=== PATIENT | male | born 1965 | race Caucasian/White ===

== ENCOUNTER 2021-04-14 09:48 | Outpatient (CLI) | payer BC, SELFPAY ==
--- NOTE | ~2021-04-14 | CT_ITS ---
EXAMINATION: CT abdomen pelvis w con EXAM DATE: 04/14/2021 10:32 INDICATION: hernia of anterior abdominal wall . Bilateral low abdominal pain intermittently for one y ear. TECHNIQUE: Spiral CT of the abdomen and pelvis was performed following intravenous injection of 100 m L Omnipaque 350. Axial, coronal and sagittal images of the abdomen and pelvis were reviewed. The do se-length product (DLP) for this examination was 692.97 mGy-cm. The exposure was tailored according to patient size (auto mA exposure control), and iterative reconstruction (ASIR) was used as additiona l dose reduction technique. There is no prior study for comparison. FINDINGS: There is hepatic steatosis without suspicious focal lesion identified. Spleen, adrenal gla nds, pancreas are unremarkable. Gallbladder is unremarkable. No biliary obstruction. Portal and sp lenic veins are patent. Kidneys enhance symmetrically. There is no hydronephrosis. The prostate i s unremarkable. The bladder is unremarkable. There is no retroperitoneal or pelvic lymphadenopathy. There is mild scattered arteriosclerotic disease. Small umbilical and bilateral inguinal fat-conta ining hernias. The appendix is normal. The stomach and small bowel are unremarkable. There is expected amount of c olonic stool. No free intraperitoneal gas. The heart is normal in size. There are no pericardial or pleural effusions. The lung bases are unremarkable. There are no osteoblastic or osteolytic les ions identified. IMPRESSION: 1. Small fat-containing umbilical and inguinal hernias. 2. Hepatic steatosis. Reviewed, dictated and finalized at location B. NDING MACHINE OPERATOR
[2021-04-14 10:28] LABS: Estimated Glomerular Filt Rate > 60
== END 2021-04-14 09:49 | disposition home or self-care (01) ==
PROVIDERS: PCP Physician Assistant; Visit Provider Physician Assistant
DX: K76.0 Fatty (change of) liver, not elsewhere classified (principal); K42.9 Umbilical hernia without obstruction or gangrene; K40.90 Unilateral inguinal hernia, without obstruction or gangrene, not specified as recurrent
CPT/HCPCS: 74177; Q9967

== ENCOUNTER 2023-06-26 11:00 | Inpatient (IN) | payer BC, SELFPAY ==
[2023-06-26] VITALS (24 sets, daily range): BP systolic 119–154; BP diastolic 77–114; PULSE 94–107; RESP 12–22; TEMP 36.3–36.4; O2SAT 91–100; BMI 30.2
--- NOTE | ~2023-06-26 | XR_ITS ---
EXAMINATION: XR chest 2V DATE: 06/26/2023 11:30 INDICATION: Shortness of breath. TECHNIQUE: Frontal and lateral views of the chest were obtained. COMPARISON: CT abdomen and pelvis 04/14/2021 FINDINGS: There are interstitial opacities in the mid and lower lung zones. No pleural effusion or pn eumothorax. The heart size is normal. IMPRESSION: 1. Interstitial opacities in the mid and lower lung zones, likely mild pulmonary edema. Reviewed, dictated and finalized at location A. RINTENDENT COMPRESSOR STATIONS IMPRESSION: 1. Interstitial opacities in the mid and lower lung zones, likely mild pulmonar y edema.
--- NOTE | ~2023-06-26 | CT_ITS ---
EXAMINATION: CTA chest PE protocol DATE: 06/26/2023 14:38 INDICATION: Shortness of breath. Chest and upper back pain. TECHNIQUE: Computed tomography angiography (CTA) of the chest was performed with 100 mL Omnipaque-350 intravenous contrast timed to evaluate the pulmonary arteries. Coronal maximum intensity projection 3D-reconstructions were created by the technologist. Automated exposure control and iterative reconst ruction technique were employed. The dose-length product was 633.53 mGy-cm. COMPARISON: CT abdomen and pelvis 04/14/2021 FINDINGS: There is mild emphysema. There is smooth septal thickening in the lungs, consistent mild pu lmonary edema. A calcified left lung nodule and calcified left hilar lymph nodes are consistent with old granulomatous disease. There is mild noncalcified mediastinal and right hilar lymphadenopathy, li gabriella reactive. There are small pleural effusions. Cardiomegaly is noted. No pericardial effusion. The central pulmonary is enlarged, consistent with pulmonary arterial hypertension. There is no pulmonar y embolus. There is mild thoracic spondylosis. IMPRESSION: 1. No pulmonary embolus. 2. Mild pulmonary edema. 3. Small pleural effusions. 4. Mild emphysema. 5. Mild mediastinal and right hilar lymphadenopathy, likely reactive. Reviewed, dictated and finalized at location A. TROGALVANIZING MACHINE OPERATOR
--- NOTE | 2023-06-26 11:02 | ECG_ITS ---
Measurements Intervals [place] Rate: 102 P: 62 [place]: 200 QRS: -36 QRSD: 109 T: 112 QT: 364 QTc: 475 Interpretive Statements SINUS TACHYCARDIA POSSIBLE LEFT ATRIAL ENLARGEMENT LEFT AXIS DEVIATION INTRAVENTRICULAR CONDUCTION DELAY LEFT VENTRICULAR HYPERTROPHY AND ST-T CHANGE BORDERLINE R WAVE PROGRESSION, ANTERIOR LEADS BASELINE ARTIFACT- I, II BORDERLINE ECG NO PREVIOUS ECG AVAILABLE FOR COMPARISON Electronically Signed On 06-26-2023 11:40:50 CLEANING STAFF SUPERVISOR by Maximus Cobb D.O.
[2023-06-26 11:22] LABS: Basophils Absolute Auto 0.1 K/mm3 (0.0-0.1); Basophils Percent Auto 0.8 % (0.2-1.2); Eosinophils Absolute Auto 0.2 K/mm3 (0-0.3); Eosinophils Percent Auto 2.2 % (0-4.4); Hematocrit 44.8 % (42.0-52.0); Hemoglobin 14.5 g/dL (14.0-18.0); Immature Granulocyte Absolute 0.02 K/mm3 (0.00-0.031); Immature Granulocyte Percent A 0.2 % (0-0.5); Lymphocytes Absolute Auto 1.29 K/mm3 (0.9-3.2); Lymphocytes Percent Auto 14.9 % (18.3-44.2); Mean Corpuscular HGB Conc 32.4 g/dl (32-36); Mean Corpuscular Hemoglobin 30.5 pg (26-34); Mean Corpuscular Volume 94.3 fl (80-100); Mean Platelet Volume 9.3 fl (7.4-10.4); Monocytes Absolute Auto 0.5 K/mm3 (0.1-0.6); Monocytes Percent Auto 6.1 % (2.6-8.5); Neutrophils Absolute Auto 6.6 K/mm3 (1.3-6.7); Neutrophils Percent Auto 75.8 % (45.5-73.1); Platelet Count Result 265 k/mm3 (150-375); Red Blood Count 4.75 M/mm3 (4.6-6.20); Red Cell Distribution Width 14.6 % (11.5-14.5); White Blood Count 8.7 K/mm3 (4.5-10.0)
[2023-06-26 11:37] LABS: Alanine Aminotransferase 31 U/L (6-50); Albumin Level 4.8 g/dL (3.5-5.1); Alkaline Phosphatase 93 U/L (38-126); Anion Gap 11 mmol/L (8-16); Aspartate Amino Transferase 32 U/L (17-59); Bilirubin,Total 1.1 mg/dL (0.2-1.3); Blood Urea Nitrogen 20 mg/dL (9-20); Calcium 9.9 mg/dL (8.4-10.2); Carbon Dioxide 30 mmol/L (22-30); Chloride 99 mmol/L (98-107); Estimated CRCL calculation 97 ml/min; Estimated Glomerular Filt Rate > 60; Glucose 193 mg/dL (65-110); Potassium 3.6 mmol/L (3.4-5.0); Sodium 140 mmol/L (137-145)
[2023-06-26 12:00] LABS: NT Pro B Type Natriuretic Pept 1710 pg/mL (19.9-100); Troponin I 0.023 ng/mL (0.000-0.034)
--- NOTE | 2023-06-26 12:29 | ED.GENADULT ---
HPI - General Adult General Chief complaint: Shortness of Breath/Dyspnea Stated complaint: sob Time Seen by Provider: 06/26/23 11:16 History of Present Illness HPI narrative: 57-year-old male present to the emergency department for evaluation orthopnea and worsening shortness breath over the last few days. Patient states when he lays down flat he does have some chest congestion. Patient denies any current chest pain but states he does have some intermittent back pain. Patient does have a history of peripheral neuropathy and does have intermittent lower extremity swelling. Related Data Allergies Allergy/AdvReac Type Severity Reaction Status Date / Time No Known Allergies Allergy Verified 06/26/23 11:11 Review of Systems Review of Systems: All systems reviewed & are unremarkable except as noted in HPI and below Exam Narrative: APPEARANCE: Well appearing, no pain, no distress, well-nourished. HEAD: normocephalic, atraumatic. EYES: PERRLA/EOMI, conjunctivae clear. NOSE: Normal no drainage EARS:TMS clear with good light reflex. THROAT: Pharynx clear, no exudate. NECK: Supple. No adenopathy, no masses. RESPIRATORY: Airway patent, respirations nonlabored. Clear to auscultation bilaterally, no rales, rhonchi, wheezing. CARDIOVASCULAR: Regular rate and rhythm without murmurs rubs or gallops. ABDOMINAL: Soft, nontender, nondistended, normal bowel sounds MUSCULOSKELETAL: Moves all extremities. Plus one edema of her lower extremities bilaterally NEURO: Alert. Cranial nerves II through XII intact. SKIN: Warm, dry. Normal Color Course Course Emergency Course: 57-year-old male presenting emergency department for evaluation orthopnea and worsening exertional shortness of breath. Patient is afebrile with no leukocytosis and a stable hemoglobin of 14.5 patient does have an of 0.[address] showed no evidence of pulmonary embolism. CMP shows no acute abnormalities. Patient did have a bumped troponin is 0.036 and patient has an elevated BNP is 1700. Patient was treated with Lasix. Case was discussed with hospitalist and patient was accepted for admission. Vital Signs Vital signs: Vital Signs Temperature 97.6 F 06/26/23 11:01 Pulse Rate 107 H 06/26/23 11:01 Respiratory Rate 17 06/26/23 11:01 Blood Pressure 150/114 H 06/26/23 11:01 Pulse Oximetry 100 06/26/23 11:01 Oxygen Delivery Room Air 06/26/23 11:01 Temperature 97.6 F 06/26/23 11:01 Pulse Rate 105 H 06/26/23 18:22 Respiratory Rate 18 06/26/23 18:22 Blood Pressure 152/93 H 06/26/23 18:22 Pulse Oximetry 97 06/26/23 18:22 Oxygen Delivery Room Air 06/26/23 11:01 Medical Decision Making Vital Signs Vital Signs: Vital Signs Temperature 97.6 F 06/26/23 11:01 Pulse Rate 107 H 06/26/23 11:01 Respiratory Rate 17 06/26/23 11:01 Blood Pressure 150/114 H 06/26/23 11:01 Pulse Oximetry 100 06/26/23 11:01 Oxygen Delivery Room Air 06/26/23 11:01 Temperature 97.6 F 06/26/23 11:01 Pulse Rate 105 H 06/26/23 18:22 Respiratory Rate 18 06/26/23 18:22 Blood Pressure 152/93 H 06/26/23 18:22 Pulse Oximetry 97 06/26/23 18:22 Oxygen Delivery Room Air 06/26/23 11:01 Lab Data 06/26/23 11:16 06/26/23 11:16 Labs: Lab Results 06/26/23 06/26/23 06/26/23 Range/Units 11:15 11:16 13:05 WBC 8.7 (4.5-10.0) K/mm3 RBC 4.75 (4.6-6.20) M/mm3 Hgb 14.5 (14.0-18.0) g/dL Hct 44.8 (42.0-52.0) % MCV 94.3 (80-100) fl MCH 30.5 (26-34) pg MCHC 32.4 (32-36) g/dl RDW 14.6 H (11.5-14.5) % Plt Count 265 (150-375) k/mm3 MPV 9.3 (7.4-10.4) fl Immature Gran % (Auto) 0.2 (0-0.5) % Neut % (Auto) 75.8 H (45.5-73.1) % Lymph % (Auto) 14.9 L (18.3-44.2) % [place] % (Auto) 6.1 (2.6-8.5) % Eos % (Auto) 2.2 (0-4.4) % Baso % (Auto) 0.8 (0.2-1.2) % Lymph # (Auto) 1.29 (0.9-3.2) K/mm3 [place] # (Auto) 0.5 (0.1-0.6) K/m
[2023-06-26] MEDS: FUROSEMIDE INJ 40 MG/4 ML VIAL IV PUSH ×2 (12:35→21:22)
[2023-06-26 13:23] LABS: D Dimer 0.77 ug/mL (<0.48)
--- NOTE | 2023-06-26 15:01 | ECG_ITS ---
Measurements Intervals [place] Rate: 97 P: 56 [place]: 197 QRS: -34 QRSD: 110 T: 100 QT: 386 QTc: 491 Interpretive Statements SINUS RHYTHM LEFT AXIS DEVIATION POSSIBLE LEFT ATRIAL ENLARGEMENT INTRAVENTRICULAR CONDUCTION DELAY LEFT VENTRICULAR HYPERTROPHY AND ST-T CHANGE BASELINE ARTIFACT- I, III, AVL BORDERLINE ECG COMPARED TO ECG 06/26/2023 11:13:46 SINUS RHYTHM NOW PRESENT Electronically Signed On 06-26-2023 15:39:15 HAZMAT TANKER DRIVER by Maximus Cobb D.O.
[2023-06-26 15:59] LABS: Troponin I 0.036 ng/mL (0.000-0.034)
--- NOTE | 2023-06-26 16:42 | PC.NURSE ---
dinner tray ordered at 1640
--- NOTE | 2023-06-26 18:48 | ECG_ITS ---
Measurements Intervals [place] Rate: 101 P: 68 [place]: 206 QRS: -37 QRSD: 112 T: 109 QT: 371 QTc: 481 Interpretive Statements SINUS TACHYCARDIA LEFT AXIS DEVIATION POSSIBLE LEFT ATRIAL ENLARGEMENT INTRAVENTRICULAR CONDUCTION DELAY LEFT VENTRICULAR HYPERTROPHY AND ST-T CHANGE BORDERLINE R WAVE PROGRESSION, ANTERIOR LEADS COMPARED TO ECG 06/26/2023 15:20:19 SINUS TACHYCARDIA NOW PRESENT Electronically Signed On 06-26-2023 21:14:39 BRUSH CLEARING LABORER by Maximus Cobb D.O.
--- NOTE | 2023-06-26 18:58 | PM.IMHP ---
H&P: HPI History of Present Illness Date/Time: 06/26/23 17:30 Chief Complaint: Shortness of breath. Narrative: This is a very pleasant 57-year-old male with type 2 diabetes mellitus, hypertension, mixed hyperlipidemia, peripheral neuropathy, and cerebral aneurysm status post coiling who presented to the emergency department via private vehicle from home for evaluation of shortness of breath. The patient provides the following history. Sometime last week he developed shortness of breath when lying in bed and one night it was significant enough that he had to sit up in order to sleep throughout the night. Since that time he has been more fatigued than unusual and is getting a bit short of breath with day-to-day activities. Initially he denied chest discomfort but with further questioning he did admit to having intermittent chest heaviness though he attributed that to the fact that he was trying to make himself cough to see if that would help his shortness of breath. He denies paroxysmal nocturnal dyspnea but reports that she has been concerned for some time that he may have sleep apnea and reports that he snores heavily. He has not noticed any swelling in his legs. He has occasional sweats but nothing significant. He denies syncope, near syncope, cold and flu symptoms, pleuritic pain, palpitations, sensations of racing heart, nausea, and vomiting. No known history of cardiac or pulmonary disease. In the ED: He was afebrile on arrival. Blood pressures have been running in the 140s to 150s systolic with diastolic readings in the 90s. He was in a sinus tachycardia on arrival but heart rate has slowed down to a normal rate. Initial EKG showed left axis deviation, borderline R-wave progression, and findings of LVH. Chest CTA was negative for pulmonary embolus but did note cardiomegaly, mild pulmonary edema, small pleural effusions, mild emphysema, and enlarged central pulmonary arteries consistent with pulmonary arterial hypertension. Labs were significant for a proBNP is 1710, 3 hour troponin of 0.036, glucose 183, D-dimer 0.77. He received 40 mg IV furosemide and has put out nearly 2 L of urine since that time. He has no current complaints. Review of Systems Review of Systems: Twelve systems were reviewed and are negative except for as per HPI. [facility] Past Medical History Medical History Former smoker Smoked 2 packs a day for nearly 20 years. Hypertension Mixed hyperlipidemia Type 2 diabetes mellitus Surgical History Surgical History Status post coil embolization of cerebral aneurysm Family History Family History Mother Heart disease Social History Social History Social History: Surrogate medical decision maker: Gabrielle Grossroe, spouse. Code status: Full code. Smoking packs per day: 2 Smoking cigarettes per day: 40.0 Years smoked: 20 Smoking pack-years: 40.00 Alcohol intake: current Alcohol use details: Rare alcohol use in moderation. Substance use: never Additional living arrangements comments: Lives with spouse in [place]. Additional occupation/education comments: Works for [employer]. Meds Home Medications and Allergies Allergies Allergy/AdvReac Type Severity Reaction Status Date / Time No Known Allergies Allergy Verified 06/26/23 11:11 Vital Signs Vital Signs - 24 hr 06/26/23 11:01 06/26/23 11:13 06/26/23 11:31 Temperature 97.6 F Pulse Rate 107 H 100 103 H Respiratory Rate 17 18 Blood Pressure 150/114 H Pulse Oximetry 100 99 Oxygen Delivery Room Air 06/26/23 11:32 06/26/23 12:08 06/26/23 12:50 Temperature Pulse Rate 102 H 105 H 103 H Respiratory Rate 22 H 22 H 20 Blood Pressure 154/101 H Pulse Oximetry 97 97 96 Oxyg
[2023-06-26 19:42] LABS: Troponin I 0.035 ng/mL (0.000-0.034)
[2023-06-27] VITALS (14 sets, daily range): BP systolic 119–138; BP diastolic 82–92; PULSE 72–104; RESP 16–21; TEMP 36.2–37.2; O2SAT 96–100
--- NOTE | 2023-06-27 02:17 | ADMGEN ---
This patient, Leonard Rodriguez, was admitted to IMU Room 206-02. Patient/family oriented to hospital policies and general routines including ID bracelet, bed and alarms, visiting hours, pain management, procedures, bathroom and other care routines, personal items, smoking policy, room service/diet, and visiting hours. Information on how to activate the Rapid Response Team has been discussed. Patient/Family are encouraged to report perceived risks to care and to ask questions if they do not understand what they are told or what they should do.
[2023-06-27 05:56] LABS: Anion Gap 7 mmol/L (8-16); Blood Urea Nitrogen 19 mg/dL (9-20); Calcium 9.6 mg/dL (8.4-10.2); Carbon Dioxide 31 mmol/L (22-30); Chloride 102 mmol/L (98-107); Estimated CRCL calculation 87 ml/min; Estimated Glomerular Filt Rate > 60; Glucose 152 mg/dL (65-110); Magnesium 2.2 mg/dL (1.6-2.3); Potassium 3.7 mmol/L (3.4-5.0); Sodium 140 mmol/L (137-145)
--- NOTE | 2023-06-27 09:08 | PM.CNCAR ---
Assessment and Plan Assessment and plan (1) Acute HFrEF (heart failure with reduced ejection fraction): Code(s): I50.21 - Acute systolic (congestive) heart failure Status: Acute Assessment and Plan: New diagnosis decompensated heart failure with reduced ejection fraction with EF 25-30% by echocardiogram at bedside reporting progressive declining activity tolerance, fatigue exertional dyspnea past several months particularly worse with past week. Discussed at great etiology prior to obtaining the echo the likelihood he has significant LV dysfunction as explanation to his symptoms confirmed by the echo this hospitalization. We discussed medical management consideration, nonischemic versus ischemic etiology further evaluation. Circumstances echo findings. given the degree of LV enlargement dysfunction this is consistent with a more chronic progressive process which may be related to severe multi-vessel progressive CAD or nonischemic etiology. As such I recommended coronary angiography for definitive assessment of coronary anatomy and to exclude severe obstructive CAD as explanation with recommendation to follow. We discussed risks, benefits and alternatives. All questions answered to his satisfaction. Patient verbalized understanding and agreed with plan of care. overall, we discussed the pathophysiology of heart failure, LV dysfunction potential arrhythmia risk medical management prognosis and justification for medical treatment. Discussed importance of medical management in this regard as well. I would recommend discontinuation of lisinopril with a 36 hour washout and subsequent initiation of Entresto 49/51 mg twice daily. Continuation of aspirin 81 mg daily, atorvastatin 20 mg daily, Jardiance 10 mg daily. Initiate Toprol XL 25 mg daily for additional cardiovascular support. Add spironolactone 25 mg daily and discontinue hydrochlorothiazide. Transition to oral Lasix 40 mg p.o. daily beginning tomorrow. NPO after midnight for coronary angiography tomorrow for delineation of coronary anatomy. Hold enoxaparin after today's dose. Continue to monitor on telemetry given patient's high risk status due to severe LV dysfunction risk for potential life-threatening ventricular arrhythmias decompensated heart failure. Monitor renal function closely as well as electrolytes. (2) Cardiomyopathy: Qualifiers: Cardiomyopathy type: other Qualified Code(s): I42.8 - Other cardiomyopathies Code(s): I42.9 - Cardiomyopathy, unspecified Status: Acute Assessment and Plan: New diagnosis severe LV systolic dysfunction EF 25-30% by echocardiogram reviewed at bedside. As above, nonischemic versus ischemic etiology discussed at length. Cause more likely due to his risk factors underlying obstructive CAD as discussed if further evaluation warranted. If nonischemic for evaluation such as cardiac MRI as an outpatient may also be considered along with additional workup. As above, will attempt to optimize guideline directed medical therapy as tolerated. (3) Hypertension: Code(s): I10 - Essential (primary) hypertension Status: Acute Assessment and Plan: BP marginal control, improved from admission however. Medication changes above. Discontinue lisinopril in favor of Entresto, discontinue hydrochlorothiazide and initiate spironolactone 25 mg daily. Initiate Toprol XL 25 mg daily. (4) Mixed hyperlipidemia: Code(s): E78.2 - Mixed hyperlipidemia Status: Acute Assessment and Plan: Continue atorvastatin 20 mg bedtime, check lipid panel, if CAD identified goal LDL less than 70. (5) Type 2 diabetes mellitus: Code(s): E11.9 - Type 2 diabetes mellitus without complications Status: Acute Assessment and Plan: medical management per primary service. (6) Elevated troponin: Code(s): R79.89 - Other specified abnormal findings of blood chemistry Status
[2023-06-27] MEDS: PERFLUTREN LIPID MICROSPHERES 1.5 ML VIAL DILUTED TO 10 ML TOTAL VOLUME IV PUSH (10:00)
[2023-06-27] MEDS: PANTOPRAZOLE 40 MG TABLET PO ×2 (10:46→11:51)
[2023-06-27] MEDS: PREGABALIN (*CRX) 50 MG CAPSULE 100 MG PO ×3 (10:47→21:32)
--- NOTE | 2023-06-27 11:44 | IVDEFINITY ---
Prior to administration of IV Definity the patient was educated on the risks and benefits of the imaging enhancing agent including potential adverse side effects. The patient verbalized understanding. Allergies were verified. No exclusion criteria were identified and at least one of the following inclusion criteria were met: 1) physician request, 2) patient technically difficult to image (per the [place] [employer] Echocardi[employer] guidelines of two or more segments not discernable within the apical view), or 3) questionable left ventricular function. ?
[2023-06-27] MEDS: ATORVASTATIN 20 MG TABLET PO (11:51)
[2023-06-27] MEDS: DULoxetine HCL 60 MG CAPSULE.DR PO (11:51)
[2023-06-27] MEDS: ASPIRIN 81 MG CHEWABLE TABLET PO (11:51)
[2023-06-27] MEDS: lisinopriL 20 MG TABLET PO (11:52)
[2023-06-27] MEDS: EMPAGLIFLOZIN 10 MG TABLET PO (11:52)
[2023-06-27] MEDS: FUROSEMIDE INJ 40 MG/4 ML VIAL IV PUSH (11:56)
[2023-06-27] MEDS: ENOXAPARIN 40 MG/0.4 ML SYRINGE SUB-Q (11:56)
[2023-06-27] MEDS: METOPROLOL SUCCINATE EXT REL 25 MG TABCR PO (15:54)
--- NOTE | 2023-06-27 17:22 | PM.IMPN ---
Progress Note: A&P Assessment and Plan (1) Congestive heart failure: Code(s): I50.9 - Heart failure, unspecified Status: Acute Assessment and Plan: Patient presents with FRAZIER for about 4-6 weeks that worsened over the last 1 week. BNP 1710. CXR showing interstitial opacities lower lung hernandez. EKG showing sinus mechanism, LAD, LVH with strain and IVCD. Troponin very mildly elevated probably related to CHF exacerbation. CTA chest was negative for PE, mild pulmonary edema, small pleural effusions, mild emphysema and mild adenopathy. Echo showing EF 25-30%, diastolic dysfunction, reduced RV systolic function, moderate TR/MR and severe pulm HTN Patient with acute systolic and diastolic CHF exacerbation with possible right sided failure. Etiology unclear. Consider hypertensive CMP, viral CMP, cardiac ischemia, alcohol (but felt less likely) Cardiology consulted and appreciate their input Started on Entresto, Toprol XL, and Spironolactone. Empagliflozin continued Started on Lasix IV but now transitioned to oral. [facility] planned for tomorrow to evaluate for coronary disease (2) Cardiomyopathy: Qualifiers: Cardiomyopathy type: other Qualified Code(s): I42.8 - Other cardiomyopathies Code(s): I42.9 - Cardiomyopathy, unspecified Status: Acute Assessment and Plan: As above (3) Elevated troponin: Code(s): R79.89 - Other specified abnormal findings of blood chemistry Status: Acute Assessment and Plan: Troponin is very mildly elevated and is unlikely to be due to acute coronary syndrome. [place] related to CHF (4) Hypertension: Code(s): I10 - Essential (primary) hypertension Status: Acute Assessment and Plan: Patient's blood pressure was reviewed on 06/27 Blood pressure was elevated on admission but better now. Will continue to monitor (5) Type 2 diabetes mellitus: Code(s): E11.9 - Type 2 diabetes mellitus without complications Status: Acute Assessment and Plan: The patient's blood glucose was reviewed on 06/27 Glucose remains well controlled. Start AccuCheks covering with sliding scale. Hypoglycemia protocol available as needed. Continue to follow Check hemoglobin A1c. (6) Suspected sleep apnea: Code(s): R29.818 - Other symptoms and signs involving the nervous system Status: Acute Assessment and Plan: reports that he snores heavily. Apnea link ordered for this evening. (7) Mixed hyperlipidemia: Code(s): E78.2 - Mixed hyperlipidemia Status: Acute Assessment and Plan: LFTs within normal limits. Continue atorvastatin Plan DVT prophylaxis - Lovenox Code status - Full Subjective Date/time seen: 06/27/23 17:22 Interval history: 57yo male with hx of DM with neuropathy, HTN, HLD, ex-smoker and cerebral aneurysm s/p coil here for shortness of breath. He noted FRAZIER about 4-6 weeks ago that worsened. He was a heavy drinker up until he had the coil placed in 2017 and now only has a few drinks per month. No CP. Feels better today and less SOB. Not much of an appetite Exam Narrative: AF 98.9 119/82 104 20 97% ra Gen - NARD Chest - few basilar rhonchi o/w clear CV - RRR S1/S2. Tele showing episodes of 3-5b NSVT Abd - Soft, NT/ND, Positive BS Ext - No pedal edema Neuro - Alert and oriented. Nonfocal exam. Psych - Nml mood and affect Skin - Warm and dry Objective Data Vital Signs Vital Signs: Vital Signs - 24 hr 06/26/23 18:22 06/26/23 17:35 06/26/23 21:12 Temperature Pulse Rate 105 H 99 100 Respiratory Rate 18 18 15 Blood Pressure 152/93 H 132/84 Pulse Oximetry 97 96 97 Oxygen Delivery 06/26/23 22:19 06/26/23 23:18 06/27/23 00:00 Temperature 97.3 F L Pulse Rate 97 99 Respiratory Rate 16 16 Blood Pressure 119/94 H 127/81 Pulse Oximetry 95 95 Oxygen Delivery Room Air 06/27/23 00:00 06/27/23 02:00
[2023-06-27 20:26] LABS: Glucose Point of Care 103 mg/dl (65-105)
--- NOTE | 2023-06-27 21:56 | ECHO_ITS ---
Patient Info Name: Leonard Rodriguez Age: 57 years : 1965 Gender: Male Ht: 69 in Wt: 205 lbs BSA: 2.15 m2 HR: 94 bpm BP: 138 / 83 mmHg Heart Rhythm: Tachycardia, Sinus Rhythm Technical Quality: Good Exam Date: 06/27/2023 9:49 AM Exam Location: Echo Lab Patient Status: Inpatient Admit Date: 06/26/2023 Staff Ordering Physician: Qian Nguyen PA-C Pathologist: Sharron Sidhu RDCS Attending Provider: Lorie Caraballo MD Referring Physician: Patrick MOROCHO; Exam Type: CA echo dop color flow w con Study Info Indications - CHF, HTN, ELEVATED TROPONIN Complete two-dimensional, color flow and Doppler transthoracic echocardiogram is performed with contrast to opacify the left ventricle and to improve the deliniation of the left ventricle endocardial borders. Contrast/Agitated Saline Contrast/Ag. Saline: Definity Amount: 3.00 ml Summary 1. No evidence for LV apical thrombus with definity contrast administration. 2. Left ventricular chamber dimension is moderate to severely enlarged. 3. Left ventricular systolic function is severely reduced, estimated at 25-30%. 4. There is mildly increased left ventricular wall thickness. 5. The left ventricular diastolic function is abnormal. 6. Right ventricular chamber dimension is normal. 7. Right ventricular systolic function is moderately reduced. 8. Left atrial chamber dimension is moderately enlarged. 9. There is moderate tricuspid valve regurgitation. 10. Severe pulmonary hypertension, estimated pulmonary arterial systolic pressure is 68 mmHg. 11. There is moderate mitral valve regurgitation. Left Ventricle Left ventricular chamber dimension is moderate to severely enlarged. Left ventricular systolic function is severely reduced, estimated at 25-30%. There is mildly increased left ventricular wall thickness. The left ventricular diastolic function is abnormal. There is no thrombus visualized in the left ventricle. No evidence for LV apical thrombus with definity contrast administration. Right Ventricle Right ventricular chamber dimension is normal. Right ventricular systolic function is moderately reduced. Left Atria Left atrial chamber dimension is moderately enlarged. Right Atria Right atrial chamber dimension is mildly enlarged. Aortic Valve The aortic valve is not well visualized. There is no aortic valve stenosis. There is no aortic valve regurgitation. Pulmonic Valve The pulmonic valve is not well visualized. There is trace pulmonic regurgitation. Mitral Valve The mitral valve has thickened leaflets. There is moderate mitral valve regurgitation. Tricuspid Valve The tricuspid valve leaflets are normal. There is moderate tricuspid valve regurgitation. Severe pulmonary hypertension, estimated pulmonary arterial systolic pressure is 68 mmHg. Pericardium/Pleural The pericardium appears normal. There is no pericardial effusion. Inferior Vena Cava Dilated inferior vena cava with <50% collapse upon inspiration consistent with significantly elevated right atrial pressure, 15 mmHg. Aorta The aortic root size at the sinus of Valsalva is normal. There is mild aortic atherosclerosis. Left Ventricular Outflow Tract Name Value Normal LVOT 2D LVOT Diameter 1.82 cm
[2023-06-28] VITALS (23 sets, daily range): BP systolic 109–138; BP diastolic 71–95; PULSE 84–126; RESP 14–20; TEMP 36.4–36.7; O2SAT 87–100
[2023-06-28] MEDS: PREGABALIN (*CRX) 50 MG CAPSULE 100 MG PO ×2 (05:04→13:21)
[2023-06-28 07:53] LABS: Basophils Absolute Auto 0.1 K/mm3 (0.0-0.1); Basophils Percent Auto 0.7 % (0.2-1.2); Eosinophils Absolute Auto 0.6 K/mm3 (0-0.3); Eosinophils Percent Auto 5.9 % (0-4.4); Hematocrit 44.6 % (42.0-52.0); Hemoglobin 14.8 g/dL (14.0-18.0); Immature Granulocyte Absolute 0.02 K/mm3 (0.00-0.031); Immature Granulocyte Percent A 0.2 % (0-0.5); Lymphocytes Absolute Auto 1.82 K/mm3 (0.9-3.2); Lymphocytes Percent Auto 17.4 % (18.3-44.2); Mean Corpuscular HGB Conc 33.2 g/dl (32-36); Mean Corpuscular Volume 93.3 fl (80-100); Mean Platelet Volume 9.5 fl (7.4-10.4); Monocytes Absolute Auto 0.8 K/mm3 (0.1-0.6); Monocytes Percent Auto 7.4 % (2.6-8.5); Neutrophils Absolute Auto 7.2 K/mm3 (1.3-6.7); Neutrophils Percent Auto 68.4 % (45.5-73.1); Platelet Count Result 272 k/mm3 (150-375); Red Blood Count 4.78 M/mm3 (4.6-6.20); Red Cell Distribution Width 14.6 % (11.5-14.5); White Blood Count 10.5 K/mm3 (4.5-10.0)
[2023-06-28 08:01] LABS: Albumin Level 4.3 g/dL (3.5-5.1); Anion Gap 7 mmol/L (8-16); Blood Urea Nitrogen 20 mg/dL (9-20); Calcium 9.6 mg/dL (8.4-10.2); Carbon Dioxide 32 mmol/L (22-30); Chloride 102 mmol/L (98-107); Estimated CRCL calculation 78 ml/min; Estimated Glomerular Filt Rate > 60; Glucose 121 mg/dL (65-110); Magnesium 2.3 mg/dL (1.6-2.3); Phosphorus 4.4 mg/dL (2.5-4.5); Potassium 3.9 mmol/L (3.4-5.0); Sodium 141 mmol/L (137-145)
[2023-06-28 08:22] LABS: Glucose Point of Care 130 mg/dl (65-105)
[2023-06-28] MEDS: EMPAGLIFLOZIN 10 MG TABLET PO (08:23)
[2023-06-28] MEDS: PANTOPRAZOLE 40 MG TABLET PO (08:23)
[2023-06-28] MEDS: DULoxetine HCL 60 MG CAPSULE.DR PO (08:23)
[2023-06-28] MEDS: METOPROLOL SUCCINATE EXT REL 25 MG TABCR PO (08:23)
[2023-06-28] MEDS: ATORVASTATIN 20 MG TABLET PO (08:25)
[2023-06-28] MEDS: ASPIRIN 81 MG CHEWABLE TABLET PO (08:25)
[2023-06-28 09:34] LABS: Hemoglobin A1C 6.3 % (<5.7)
--- NOTE | 2023-06-28 09:37 | WPDMODSED ---
Moderate Sedation Note-Pt Data Patient Data Diagnosis: Newly diagnosed cardiomyopathy Present Complaint: Shortness of breath Procedure to be performed/Plan: Left heart catheterization Allergies Allergy/AdvReac Type Severity Reaction Status Date / Time No Known Allergies Allergy Verified 06/26/23 11:11 Home Medications Medication Instructions Recorded Confirmed Type atorvastatin 20 mg tablet 20 mg PO DAILY 06/26/23 06/27/23 History lisinopril 20 1 tablet PO DAILY 06/26/23 06/26/23 History mg-hydrochlorothiazide 12.5 mg tablet metformin 500 mg tablet,extended 500 mg PO DAILY 06/26/23 06/26/23 History release 24 hr omeprazole 40 mg capsule,delayed 40 mg PO DAILY 06/26/23 06/26/23 History release pregabalin 100 mg capsule 100 mg PO TID 06/26/23 06/27/23 History aspirin 81 mg tablet 81 mg PO DAILY 06/27/23 06/27/23 History duloxetine 60 mg capsule,delayed 60 mg PO DAILY 06/27/23 06/27/23 History release empagliflozin 10 mg tablet 10 mg PO DAILY 06/27/23 06/27/23 History (Jardiance) Current Medications: Active Medications Acetaminophen (Acetaminophen 325 Mg Tablet) 650 mg PO Q6H PRN PRN Reason: Mild Pain (1-3) or Fever Aspirin (Aspirin 81 Mg Chewable Tablet) 81 mg PO DAILY@0800 [facility] Last Admin: 06/28/23 08:25 Dose: 81 mg Atorvastatin Calcium (Atorvastatin 20 Mg Tablet) 20 mg PO DAILY [facility] Last Admin: 06/28/23 08:25 Dose: 20 mg Dextrose (Dextrose 50% 25 Gm/50 Ml Syringe) 12.5 gm IV PUSH PRN PRN; Protocol PRN Reason: Hypoglycemia Duloxetine HCl (Duloxetine Hcl 60 Mg Capsule.Dr) 60 mg PO DAILY [facility] Last Admin: 06/28/23 08:23 Dose: 60 mg Empagliflozin (Empagliflozin 10 Mg Tablet) 10 mg PO DAILY [facility] Last Admin: 06/28/23 08:23 Dose: 10 mg Enoxaparin Sodium (Enoxaparin 40 Mg/0.4 Ml Syringe) 40 mg SUB-Q DAILY [facility] Last Admin: 06/27/23 12:17 Dose: Not Given Furosemide (Furosemide 40 Mg Tablet) 40 mg PO DAILY [facility] Glucagon (Glucagon For Inj 1 Mg Vial) 1 mg IM PRN PRN; Protocol PRN Reason: Hypoglycemia Glucose (Glucose Oral Gel 15 Gm Of Glucse In 37.5 Gm Tube) 15 gm PO PRN PRN; Protocol PRN Reason: Hypoglycemia Dextrose (Dextrose 5% 1,000 Ml) 1,000 mls @ 100 mls/hr IVPB PRN PRN; Protocol PRN Reason: Hypoglycemia Insulin Aspart (Insulin Aspart (*Bkc) 100 Units/Ml) 3 - 6 units SUB-Q TIDWM DENISA; Protocol Last Admin: 06/28/23 08:01 Dose: Not Given Metoprolol Succinate (Metoprolol Succinate Ext Rel 25 Mg Tabcr) 25 mg PO QAM [facility] Last Admin: 06/28/23 08:23 Dose: 25 mg Pantoprazole Sodium (Pantoprazole 40 Mg Tablet) 40 mg PO Q12HR [facility] Last Admin: 06/28/23 08:23 Dose: 40 mg Pregabalin (Pregabalin (*Crx) 50 Mg Capsule) 100 mg PO Q8HR [facility] Last Admin: 06/28/23 05:04 Dose: 100 mg Sacubitril/Valsartan (Sacubitril/Valsartan 49-51 Mg Tablet) 1 tablet PO Q12HR [facility]ISA Spironolactone (Spironolactone 25 Mg Tablet) 25 mg PO QAM [facility] Sedation/Anesthesia: No previous sedation/anesthesia problems (including family history). [facility] Past Medical History Medical History Former smoker Smoked 2 packs a day for nearly 20 years. Hypertension Mixed hyperlipidemia Type 2 diabetes mellitus Surgical History Surgical History Status post coil embolization of cerebral aneurysm Family History Family History Mother Heart disease Glaucoma Social History Social History Social History: Surrogate medical decision maker: Gabrielle Veronica, spouse. Code status: Full code. Smoking packs per day: 2 Smoking cigarettes per day: 40.0 Years smoked: 20 Smoking pack-years: 40.00 Smoking status: Former smoker Tobacco type: cigarettes Smoking end date: 06/27/94 Alcohol intake: current Drinks per week: 1 Alcohol use details: Rare alcohol use in moderat
--- NOTE | 2023-06-28 10:25 | WPDCARDPROC ---
Cardiac Cath Procedure Note Date of procedure:: 06/28/23 Performing physician:: Leonard Ruiz MD Indication:: newly diagnosed cardiomyopathy Brief clinical history:: this is a 57-year-old man with hypertension, type 2 diabetes and dyslipidemia. He entered the hospital with shortness of breath found to have decompensated congestive heart failure. Echocardiogram has demonstrated poor left ventricular systolic function. Procedure Procedure performed:: Left ventriculogram coronary angiogram Angio-Seal to right femoral artery Sedation/Medication given:: fentanyl 50 mg Versed 2 mg start time 10:04 a.m. case end time 10:20 a.m. sedation provided by Lauryn Reinoso RN, trained observer Access site:: right femoral artery Estimated blood loss:: 25 cc Procedure note:: patient was brought to the cardiac catheterization lab in the postabsorptive state where the right femoral triangle was prepped draped in the normal fashion. Anesthesia was provided with 1% lidocaine infiltrated locally. Using the modified Seldinger technique the right common femoral artery was punctured and a 5 [place]ian vascular sheath was placed. After this heart catheterization was carried out. A 5 [place] JL4 catheter was used to engage and inject the left coronary artery in multiple projections following this a 5 [place] JR4 was used to engage and inject the right coronary artery in orthogonal projections. Finally a 5 [place] angled pigtail catheter was used to document left-sided hemodynamics and to inject the left ventricle them also projection. The case was then terminated an angiogram was performed the femoral the after which a 6 [place] Angio-Seal device was used to provide hemostasis. The result was very good the patient was stable the procedure was well tolerated there was no evidence of groin hematoma at the conclusion of the case. Findings:: Hemodynamics: Central aortic pressure is 122 over 68 left ventricle 122/2 end-diastolic 24 there is no gradient across the aortic valve upon pullback left ventricle: The LV is markedly dilated there is profound global systolic hypocontractility in all segments the ejection fraction I would visually estimate to be 10-15%. The left main coronary artery is patent the left anterior descending is a medium caliber artery extending down to around the apex. The LAD and its branches have no disease. Circumflex is a moderate caliber artery giving rise to the marginal branches. The circumflex Is angiographically smooth and free of disease. The right coronary artery is moderate caliber and is dominant to the posterior circulation the right coronary artery is smooth and angiographically free of disease. Conclusion:: 1. Right coronary dominant circulation with no angiographic abnormalities 2. profound left ventricular enlargement with severe global hypokinesia and low ejection fraction of 10-15% and LVEDP of 24 Leonard Ruiz MD [facility]
[2023-06-28] MEDS: FUROSEMIDE 40 MG TABLET PO (11:50)
[2023-06-28] MEDS: SPIRONOLACTONE 25 MG TABLET PO (11:50)
[2023-06-28 11:57] LABS: Glucose Point of Care 113 mg/dl (65-105)
--- NOTE | 2023-06-28 13:52 | PM.IMPN ---
Progress Note: A&P Assessment and Plan (1) Congestive heart failure: Code(s): I50.9 - Heart failure, unspecified Status: Acute Assessment and Plan: Patient presents with FRAZIER for about 4-6 weeks that worsened over the last 1 week. BNP 1710. CXR showing interstitial opacities lower lung hernandez. EKG showing sinus mechanism, LAD, LVH with strain and IVCD. Troponin very mildly elevated probably related to CHF exacerbation. Cardiology consulted and appreciate their input CTA chest was negative for PE, mild pulmonary edema, small pleural effusions, mild emphysema and mild adenopathy. Echo showing EF 25-30%, diastolic dysfunction, reduced RV systolic function, moderate TR/MR and severe pulm HTN Patient with acute systolic and diastolic CHF exacerbation with possible right sided failure. Etiology unclear. Consider hypertensive CMP, viral CMP, alcohol (but felt less likely) LHC showing no angiographic abnormalities. He had severe global HK with EF 10-15% Continue Entresto, Toprol XL, and Spironolactone. Empagliflozin continued Started on Lasix IV but now transitioned to oral. (2) Cardiomyopathy: Qualifiers: Cardiomyopathy type: other Qualified Code(s): I42.8 - Other cardiomyopathies Code(s): I42.9 - Cardiomyopathy, unspecified Status: Acute Assessment and Plan: As above (3) Elevated troponin: Code(s): R79.89 - Other specified abnormal findings of blood chemistry Status: Acute Assessment and Plan: Troponin is very mildly elevated and is unlikely to be due to acute coronary syndrome. [place] related to CHF (4) Hypertension: Code(s): I10 - Essential (primary) hypertension Status: Acute Assessment and Plan: Patient's blood pressure was reviewed on 2/2 Blood pressure was elevated on admission but better now. Will continue to monitor (5) Type 2 diabetes mellitus: Code(s): E11.9 - Type 2 diabetes mellitus without complications Status: Acute Assessment and Plan: A1c 6.3. The patient's blood glucose was reviewed on 2/2 Glucose remains well controlled. Continue AccuCheks covering with sliding scale. Hypoglycemia protocol available as needed. Continue to follow (6) Suspected sleep apnea: Code(s): R29.818 - Other symptoms and signs involving the nervous system Status: Acute Assessment and Plan: reports that patient snores heavily. Apnea link showing AHI 51.6 and RI 53.9. He spent 161 minutes with SpO2<88%. Spoke with Respiratory. He may need a repeat apnea link on 2L at night for the interim until he has official sleep study. (7) Mixed hyperlipidemia: Code(s): E78.2 - Mixed hyperlipidemia Status: Acute Assessment and Plan: LFTs within normal limits. Continue atorvastatin Plan DVT prophylaxis - Lovenox Code status - Full Subjective Date/time seen: 06/28/23 13:52 Interval history: 57yo male with hx of DM with neuropathy, HTN, HLD, ex-smoker and cerebral aneurysm s/p coil here for shortness of breath. Feels well. Tolerated the [facility] well. Hungry. No problems overnight. no CP or SOB Exam Narrative: AF 97.8 114/72 98 18 99% ra Gen - NARD Chest - CTA bilaterally, nml RR CV - RRR S1/S2. Tele showing PVCs Abd - Soft, NT/ND, Positive BS Ext - No pedal edema. 2+ DP pulses bilaterally. no hematoma right groin Neuro - Alert and oriented. Nonfocal exam. Psych - Nml mood and affect Skin - Warm and dry Objective Data Vital Signs Vital Signs: Vital Signs - 24 hr 06/27/23 14:00 06/27/23 16:00 06/27/23 16:00 Temperature Pulse Rate 101 H 102 H Pulse Rate [Monitor] Respiratory Rate Blood Pressure Pulse Oximetry Oxygen Delivery Room Air Oxygen Flow Rate 06/27/23 16:00 06/27/23 18:00 06/27/23 20:00 Temperature 98.9 F 98.2 F Pulse Rate 104 H 101 H 93 Pulse Rate [Monitor] Respiratory Rate 20 21 H Bloo
--- NOTE | 2023-06-28 15:27 | PCRCNOTE ---
Will fax all required paperwork for auto-pap set-up to [facility] after order is e-signed.
--- NOTE | 2023-06-28 15:34 | HOMEO2EVAL ---
Evaluation was performed at [facility] Home Oxygen Evaluation RC: Home Oxygen (O2) Evaluation Start: 06/28/23 15:12 Freq: ONCE Status: Active Protocol: RPE Activity Type Activity Date Activity User E-sign Co-sign Detail Recorded Client Recorded Date Recorded By Document 06/28/23 15:00 PAM [email or web address] 06/28/23 15:33 PAM Document 06/28/23 15:05 PAM [email or web address] 06/28/23 15:33 PAM Document 06/28/23 15:10 PAM [email or web address] 06/28/23 15:33 PAM Document 06/28/23 15:15 PAM [email or web address] 06/28/23 15:33 PAM Document 06/28/23 15:25 PAM [email or web address] 06/28/23 15:33 PAM 06/28/23 06/28/23 06/28/23 15:00 15:05 15:10 Home O2 Evaluation [Oxygen] -Test Phase Resting Exercise Exercise -Oxygen Delivery Room Air Room Air Nasal Cannula -Oxygen Flow Rate (L/min) 1 [Pulse Oximetry] -Pulse Oximetry (90-100 %) 92 87 L 88 L [Pulse Rate] -Pulse Rate (60-100 beats/min) 88 124 H 122 H [Evaluation] -Activity Tolerance [Charges] -Evaluation Charges O2 Evaluation by Pulmonary 06/28/23 06/28/23 15:15 15:25 Home O2 Evaluation [Oxygen] -Test Phase Exercise Resting -Oxygen Delivery Nasal Cannula Room Air -Oxygen Flow Rate (L/min) 2 [Pulse Oximetry] -Pulse Oximetry (90-100 %) 90 92 [Pulse Rate] -Pulse Rate (60-100 beats/min) 126 H 89 [Evaluation] -Activity Tolerance Good [Charges] -Evaluation Charges
--- NOTE | 2023-06-28 16:20 | PM.DS ---
DS: Admitting Diagnosis Discharge Date 06/28/23 Admitting Diagnosis Shortness of breath DS: Discharge Diagnosis Discharge Diagnosis (1) Congestive heart failure: Code(s): I50.9 - Heart failure, unspecified Status: Acute (2) Cardiomyopathy: Qualifiers: Cardiomyopathy type: other Qualified Code(s): I42.8 - Other cardiomyopathies Code(s): I42.9 - Cardiomyopathy, unspecified Status: Acute (3) Elevated troponin: Code(s): R79.89 - Other specified abnormal findings of blood chemistry Status: Acute (4) Hypertension: Code(s): I10 - Essential (primary) hypertension Status: Acute (5) Type 2 diabetes mellitus: Code(s): E11.9 - Type 2 diabetes mellitus without complications Status: Acute (6) Suspected sleep apnea: Code(s): R29.818 - Other symptoms and signs involving the nervous system Status: Acute (7) Mixed hyperlipidemia: Code(s): E78.2 - Mixed hyperlipidemia Status: Acute DS: Summary Hospital Course Reason for hospitalization: 57yo male with hx of DM with neuropathy, HTN, HLD, ex-smoker and cerebral aneurysm s/p coil here for shortness of breath. Please see H&P for details Hospital Course: Patient presented with FRAZIER for about 4-6 weeks that worsened over the last 1 week. BNP 1710. CXR showing interstitial opacities lower lung hernandez. EKG showing sinus mechanism, LAD, LVH with strain and IVCD. Troponin very mildly elevated probably related to CHF exacerbation. Cardiology consulted and appreciate their input. CTA chest was negative for PE but showed mild pulmonary edema, small pleural effusions, mild emphysema and mild adenopathy. Echo showing EF 25-30%, diastolic dysfunction, reduced RV systolic function, moderate TR/MR and severe pulm HTN. Patient with acute systolic and diastolic CHF exacerbation with possible right sided failure. Left heart catheterization showed no angiographic abnormalities. He had severe global HK with EF 10-15%. He was treated with IV Lasix with good diuresis and symptomatic improvement. He was started on guideline directed therapy with Entresto, Toprol XL, and Spironolactone. Empagliflozin was continued. reports that patient snores heavily. Apnea link showing AHI 51.6 and RI 53.9. He spent 161 minutes with SpO2<88%. He had a home O2 evaluation showing that he needed 2L O2 with exertion. Spoke with Respiratory. Patient qualifies for home NIV unit but not able to have this set up for a few days. Plan for patient to go home with O2 to wear 2Liters/min with exertion. He was also instructed to wear O2 2Liters/min at night and with naps until such time as the NIV unit is set up for him at home. He was fitted for a LifeVest. He overall did well and was able to be discharged home on 06/28/23. Status at Discharge Cognitive/behavioral status at discharge: stable Time Spent with Patient Time attestation: Total time spent providing and/or coordinating discharge services: 39 minutes Exam Narrative: AF 97.8 114/72 98 18 99% ra Gen - NARD Chest - CTA bilaterally, nml RR CV - RRR S1/S2. Tele showing PVCs Abd - Soft, NT/ND, Positive BS Ext - No pedal edema. 2+ DP pulses bilaterally. no hematoma right groin Neuro - Alert and oriented. Nonfocal exam. Psych - Nml mood and affect Skin - Warm and dry DS: Data Data Completed and Pending Labs on day of discharge: Labs from last 24 hours 06/28/23 06/28/23 06/28/23 11:52 08:05 07:39 WBC 10.5 H RBC 4.78 Hgb 14.8 Hct 44.6 MCV 93.3 MCH 31.0 MCHC 33.2 RDW 14.6 H Plt Count 272 MPV 9.5 Immature Gran % (Auto) 0.2 Neut % (Auto) 68.4 Lymph % (Auto) 17.4 L [place] % (Auto) 7.4 Eos % (Auto) 5.9 H Baso % (Auto) 0.7 Lymph # (Auto) 1.82 [place] # (Auto) 0.8 H Eos # (Auto) 0.6 H Baso # (Auto) 0.1 Abs Immat Gran (auto) 0.02 Absolute Neuts (auto) 7.2 H Absolute Nucleated RBC 0.0
[2023-06-28 16:28] LABS: Glucose Point of Care 159 mg/dl (65-105)
== END 2023-06-28 17:45 | disposition home or self-care (01) | DRG 286 ==
LOC: ANHED 11:35 → ANHIMU 17:44
PROVIDERS: Physician Assistant; Specialist; Admitting Provider General Practice; Emergency Provider Emergency Medicine; PCP Physician Assistant; Visit Provider Internal Medicine
PROC: 4A023N7 Measurement of Cardiac Sampling and Pressure, Left Heart, Percutaneous Approach (ICD-10-PCS; CPT 93452; principal; 2023-06-28 10:00)
PROC: 4A023N7 Measurement of Cardiac Sampling and Pressure, Left Heart, Percutaneous Approach (ICD-10-PCS; 2023-06-28 10:00)
DX: I11.0 Hypertensive heart disease with heart failure (principal); I50.41 Acute combined systolic (congestive) and diastolic (congestive) heart failure; I42.9 Cardiomyopathy, unspecified; E11.42 Type 2 diabetes mellitus with diabetic polyneuropathy; E78.2 Mixed hyperlipidemia; G47.30 Sleep apnea, unspecified; Z79.82 Long term (current) use of aspirin; I27.20 Pulmonary hypertension, unspecified
CPT/HCPCS: 36415; 71046; 71275; 80048; 80053; 80069; 82948; 83036; 83735; 83880; 84484; 85025; 85380; 93005; 93458; 94618; 96374; 96375; 96376; 99285; A9270; C1760; C1887; C1894; C8929; G0269; G0378; J1644; J1650; J1940; J2250; J3010; J7040; Q9957; Q9967